=== PATIENT | male | born 2000 | race Caucasian/White ===

== ENCOUNTER 2022-01-26 14:51 | Emergency (ER) | payer MEDICAID ==
[2022-01-26 15:29] VITALS: RESP 18
--- NOTE | 2022-01-26 15:58 | XR ---
EXAMINATION TYPE: XR chest 2V DATE OF EXAM: 01/26/2022 COMPARISON: NONE HISTORY: Rib pain TECHNIQUE: 2 views FINDINGS: Heart and mediastinum are normal. Lungs are clear. Diaphragm is normal. Bony thorax is inta ct. IMPRESSION: Normal chest.
--- NOTE | 2022-01-26 16:37 | ED ---
General Adult HPI - General Chief complaint: Recheck/Abnormal Lab/Rx Stated complaint: right rib pain Time Seen by Provider: 01/26/22 16:18 Source: patient, RN notes reviewed Mode of arrival: ambulatory Limitations: no limitations - History of Present Illness Initial comments: 21-year-old male presents to the emergency department for evaluation of right lower rib pain, onset 1 week ago when a right hand slid off the counter and struck him in the affected area. States has had some tenderness over the past week and thought that there was an abnormal appearance therefore was concerned for rib fracture. Is not having any difficulty or pain with breathing. Minimal pain with movement or palpation. Declines anything for pain. Denies fever, chills, cough, congestion, shortness of breath, difficulty breathing, or abdominal pain. - Related Data Home Medications Medication Instructions Recorded Confirmed Multivitamin/Iron/Folic Acid 2 each PO DAILY 10/06/15 10/06/15 [Centrum Complete Multivit Tab] Allergies Allergy/AdvReac Type Severity Reaction Status Date / Time No Known Allergies Allergy Verified 01/26/22 15:29 Review of Systems ROS Statement: Those systems with pertinent positive or pertinent negative responses have been documented in the HPI. ROS Other: All systems not noted in ROS Statement are negative. Past Medical History Past Medical History: No Reported History History of Any Multi-Drug Resistant Organisms: None Reported Past Surgical History: No Surgical Hx Reported Past Psychological History: No Psychological Hx Reported Smoking Status: Current every day smoker, Vaper Past Alcohol Use History: None Reported Past Drug Use History: None Reported General Exam Limitations: no limitations (This is a pleasant, well-developed, well-nourished male in no acute distress. Initial temperature 98.0, pulse 63, respirations 18, blood pressure 108/66, pulse ox 100% on room air.) General appearance: alert, in no apparent distress Respiratory exam: Present: normal lung sounds bilaterally, chest wall tenderness (minimal chest wall tenderness upon palpation of anterior lower ribs. No contusion, abrasion, crepitus, or deformity palpable.). Absent: respiratory distress, wheezes, rales, rhonchi, stridor Cardiovascular Exam: Present: regular rate, normal rhythm, normal heart sounds. Absent: systolic murmur, diastolic murmur, rubs, gallop, clicks GI/Abdominal exam: Present: soft, normal bowel sounds. Absent: distended, tenderness, guarding, rebound, rigid Neurological exam: Present: alert, oriented X3, CN II-XII intact Psychiatric exam: Present: normal affect, normal mood Course Vital Signs 01/26/22 15:27 Temperature 98 F Pulse Rate 63 Respiratory 18 Rate Blood Pressure 108/66 O2 Sat by Pulse 100 Oximetry Medical Decision Making - Medical Decision Making This is a pleasant 21-year-old female who presents to the emergency department for evaluation of right lower chest wall/rib pain 1 week. Upon exam, patient is well-appearing and in no acute distress. There is no obvious chest wall trauma. Lungs sounds are clear to auscultation and patient is not experiencing any shortness of breath. Vital signs are stable. Chest x-ray shows no acute findings. Patient will be discharged home to follow up with [facility] for a recheck in 2 days. There is no need for work restriction and patient is advised to take Tylenol or Motrin if needed for his discomfort. Return parameters discussed in detail. Patient verbalizes understanding and agrees with this plan. Attending: Nuris Alexander Clinical Impression: Right-sided chest wall pain Disposition: HOME SELF-CARE Condition: Stable Instructions (If sedation given, give patient instructions): Costochondritis (ED) Additional Instructions: May take Tylenol or Motrin if needed for pain. Follow-up with [facility] for a recheck in 2 days. Return to the emergency department with any new, worsening, or concerning symptoms such as shortness of breath or difficulty breathing. Is patient prescribed a controlled substance at d/c from ED?: No Referrals: Alan Epstein MD [Primary Care Provider] - 1-2 days Time of Disposition: 16:37
[2022-01-26 16:54] VITALS: BP 112/78; PULSE 62; TEMP 97.8
== END 2022-01-26 16:50 | disposition home or self-care (01) ==
LOC: EC 14:51
DX: R07.89 Other chest pain (principal); F17.200 Nicotine dependence, unspecified, uncomplicated; W22.03XA Walked into furniture, initial encounter
CPT/HCPCS: 71046; 99283